=== PATIENT | male | born 1980 | race Two or more races ===

== ENCOUNTER 2021-01-12 17:47 | Emergency (ER) | payer OTHER ==
[~2021-01-12] VITALS: Ht 175.3 cm; Wt 88.6 kg
[2021-01-12] MEDS ORDERED: LIDOCAINE 1% 10 ML VIAL ID ONE (19:00)
[2021-01-12] MEDS ORDERED: PERTUSS(ACELL),DIPH,TET VAC/PF 0.5 ML SYRINGE IM ONE (21:15)
[2021-01-12 21:53] VITALS: BP 136/82
== END 2021-01-12 21:58 | disposition home or self-care (01) ==
LOC: EMS 17:53
DX: S61.216A Laceration without foreign body of right little finger without damage to nail, initial encounter (principal); S61.214A Laceration without foreign body of right ring finger without damage to nail, initial encounter; W20.8XXA Other cause of strike by thrown, projected or falling object, initial encounter; Y93.89 Activity, other specified; Y92.89 Other specified places as the place of occurrence of the external cause; Y99.0 Civilian activity done for income or pay
CPT/HCPCS: 12002; 90471; 90715; 99283; J3490